=== PATIENT | female | born 1985 | race Caucasian/White ===

== ENCOUNTER 2022-01-07 19:22 | Inpatient (IN) | payer MEDICAID, SELFPAY ==
[~2022-01-07 19:22] MED LIST: Iopamidol 300 61% 100 ML VIAL FS ONE
[2022-01-07] MEDS ORDERED: Dicyclomine 20 MG/2 ML VIAL ONE (19:58)
[2022-01-07] MEDS ORDERED: Ondansetron PF 4 MG/2 ML Vial ONE (19:58)
[2022-01-07] MEDS ORDERED: Ketorolac Tromethamine 30 MG/ML VIAL ONE (19:58)
[2022-01-07 20:24] LABS: #Monocytes 0.3 10x3/uL (0.0-1.1); #Neutrophils 9.3 10x3/uL (1.5-8.4); %Basophils 0.2 % (0.0-2.0); %Eosinophils 0.1 % (0.0-6.0); %Lymphocytes 7.7 % (18.0-47.0); %Monocytes 3.2 % (0.0-10.0); %Neutrophils 88.5 % (40.0-75.0); Mean Corpuscular HGB CONC 34.2 g/dL (32.0-36.0); Mean Corpuscular Hemoglobin 28.7 pg (27.0-33.0); Mean Corpuscular Volume 83.9 fl (81.6-98.3); Mean Platelet Volume 10.1 fl (7.4-10.4); Platelet Count 257 10x3/uL (150-450); RBC Distribution Width 11.9 % (11.5-14.5); Red Blood Cell (RBC) Count 4.53 10x6/uL (3.90-5.03); White Blood Cell (WBC) Count 10.5 10x3/uL (3.5-10.5)
[2022-01-07 20:30] LABS: BHCG - Serum Negative (NEGATIVE); Pregs Control Background? CLEAR/WHITE (CLR/WHITE); Pregs Control Bar Appear? YES (CONTROL BAR)
[2022-01-07 20:38] LABS: ALT (SGPT) 13 U/L (8-55); AST (SGOT) 16 U/L (5-34); Albumin 4.5 g/dL (3.5-5.0); Alkaline Phosphatase 67 U/L (40-110); Anion Gap 14 mmol/L (10-20); BUN (Urea Nitrogen) 10 mg/dL (7.0-18.7); Bilirubin, Total 0.4 mg/dL (0.2-1.2); Calc. Creatinine Clearance 0 mL/min (70-130); Calcium 9.7 mg/dL (7.8-10.44); Carbon Dioxide 26 mmol/L (22-29); Chloride 101 mmol/L (98-107); Estimated GFR 69; Globulin 3.3 g/dL (2.4-3.5); Glucose 125 mg/dL (70-105); Lipase 43 U/L (8-78); Potassium 3.9 mmol/L (3.5-5.1); Protein, Total 7.8 g/dL (6.0-8.3); Sodium 137 mmol/L (136-145)
[2022-01-07 22:30] LABS: SARS-CoV-2 NAA Rapid Test Not Detected (NotDetected)
[2022-01-08 00:29] LABS: Bilirubin Neg (Negative); Blood, Urine 10 (Negative); Clarity Clear (Clear); Glucose, Urine (Dipstick) Normal (Negative); Ketone, Urine 5 mg/dL (Negative); Leukocyte Negative (Negative); Nitrite Negative (Negative); Protein, Urine (Dipstick) 15 mg/dl (Neg-Trace); Specific Gravity, Urine 1.005 (1.005-1.030); Urobilinogen Normal mg/dL (Less than 2)
[2022-01-08 00:45] LABS: Bacteria/HPF Rare-Few HPF (None Seen); RBC/HPF 0-3 HPF (0-3); Squamous Epithelial 0-3 HPF (0-3); WBC/HPF 0-3 HPF (0-3)
[2022-01-08] MEDS ORDERED: Morphine 4 MG/ML VIAL ONE (05:40)
[2022-01-08] MEDS ORDERED: EPINEPHrine 1 MG/ML AMP ONE (07:34)
[2022-01-08] MEDS ORDERED: Bupivacaine PF 0.5% 30 ML VIAL ONE (07:35)
[2022-01-08] MEDS ORDERED: Scopolamine 1.5 mg/72 hour Patch ONE (07:54)
[2022-01-08] MEDS ORDERED: Midazolam HCl 2 mg/2 ml Vial ONE (07:55)
[2022-01-08] MEDS ORDERED: SUGAMMADEX SODIUM 200 MG/2 ML VIAL ONE (07:55)
[2022-01-08] MEDS ORDERED: Clindamycin/D5W 900 mg/50 ml Premix Bag ONE (07:56)
[2022-01-08] MEDS ORDERED: Esmolol 100 MG/10 ML VIAL ONE (07:58)
[2022-01-08] MEDS ORDERED: Ketorolac Tromethamine 30 MG/ML VIAL ONE (07:58)
[2022-01-08] MEDS ORDERED: Rocuronium Bromide 10 MG/ML (10ML VIAL) ONE (07:58)
[2022-01-08] MEDS ORDERED: Fentanyl 100 MCG/2 ML VIAL ONE (07:58)
[2022-01-08] MEDS ORDERED: Lidocaine 1% PF 5 ML VIAL ONE (07:58)
[2022-01-08] MEDS ORDERED: PROPOFOL 20 ML ONE (07:58)
[2022-01-08] MEDS ORDERED: Ondansetron PF 4 MG/2 ML Vial ONE (07:58)
[2022-01-08] MEDS ORDERED: Dexamethasone 4 mg/ml Vial ONE (07:58)
[2022-01-08] MEDS ORDERED: ePHEDrine Sulfate 50 MG/10 ML VIAL ONE (08:36)
== END 2022-01-08 10:25 | disposition home or self-care (01) | DRG 343 ==
LOC: CSHERS 19:22 → CSHERHOLD 21:58
PROVIDERS: ADMIT Surgery; ATTEND Student in an Organized Health Care Education/Training Program
PROC: 0DTJ4ZZ Resection of Appendix, Percutaneous Endoscopic Approach (ICD-10-PCS; principal; 2022-01-08)
DX: K35.80 Unspecified acute appendicitis (principal); F32.A Depression, unspecified; Z20.822 Contact with and (suspected) exposure to COVID-19; Z98.51 Tubal ligation status; Z88.0 Allergy status to penicillin; Z90.49 Acquired absence of other specified parts of digestive tract
CPT/HCPCS: 74177; 80053; 81003; 81015; 83690; 84703; 85025; 88304; 96361; 96374; 96375; A4649; J0171; J1100; J1885; J2250; J2270; J2405; J2704; J3010; J3490; Q9967; S0020; U0002